=== PATIENT | male | born 2005 | race Caucasian/White ===

== ENCOUNTER 2025-08-18 09:57 | Emergency (ER) | payer OTHER, SELFPAY ==
[2025-08-18 10:05] VITALS: BP 136/85
--- NOTE | 2025-08-18 11:25 | ED.GENMED ---
History of Present Illness
General
Chief Complaint: Dental Problem
Source: patient
Time Seen by Provider: 08/18/25 11:00
History of Present Illness
History of Present Illness:
19-year-old male with no significant past medical history presents to the emergency department for 2 separate concerns noting that on he broke a left upper molar and while he is not having any significant pain was concern for possible
infection as he woke up today with persistent nausea and vomiting. Patient denies any bowel changes, abdominal pain, fevers or infectious symptoms. He does note smoking marijuana multiple times per day. Did not take anything for symptoms prior to
arrival. No other concerns.
Past History
Past History
ED Past Medical History: None
ED Past Surgical History: None
Social History
Tobacco: Vaping
Alcohol: None
Drug: Marijuana
Personal: Single
Living: with family
Review of Systems
Review of Systems
All Other Systems: ROS reviewed and negative except as documented in HPI and ROS
Phy Exam
Physical Exam
Physical Exam:
GENERAL: Alert , in no apparent distress
EYE: clear conjunctiva b/l
HEAD: NCAT
ENT: o/p clr, mmm. Left upper 2nd molar cracked in posterior portion. No surrounding erythema/edema/fluctuance
ABDOMEN: Soft, without focal tenderness, no r/g, no cvat
NEUROLOGICAL: Alert and oriented
SKIN: Warm and dry, skin intact.
MUSCULOSKELETAL: No edema, well perfused.
PSYCH: Normal and appropriate interaction.
Scores
Heart Failure Risk
Heart Failure Risk Score: Not Applicable
Heart Score for Chest Pain Patients
STEMI patient?: Not applicable
Withdrawal Assessment of Alcohol
Withdrawal Assessment Completed?: Not applicable
Course
Orders/Labs/Results
Orders:
Orders
08/18/25 11:23
Ondansetron Orally Disint [Zofran Odt (Orally Disintegrating)] 4 mg PO NOW STA
Vital Signs
Initial and Last Documented VS:
Initial Vital Signs
Temp Pulse Resp BP Pulse Ox
97.5 F 91 20 136/85 99
08/18/25 10:05 08/18/25 10:05 08/18/25 10:05 08/18/25 10:05 08/18/25 10:05
Last Documented Vital Signs
Temp Pulse Resp BP Pulse Ox
97.5 F 91 20 136/85 99
08/18/25 10:05 08/18/25 10:05 08/18/25 10:05 08/18/25 10:05 08/18/25 11:27
MDM/Problems Addressed
Differential Diagnosis Includes:
Cracked/Chipped tooth
Dental caries
Dental abscess
Cannabinoid hyperemesis
Dehydration
Electrolyte Imbalance
Gastroenteritis
MDM/Problems Addressed:
19-year-old male presenting the ER for evaluation of a cracked tooth, secondary concern of nausea and vomiting that began this morning. No known sick contacts or recent antibiotics. Patient does endorse smoking marijuana multiple times per day,
suspect cannabinoid hyperemesis. As far as the cracked tooth goes will start patient on antibiotic and encourage close follow-up with dentist. Encourage patient to abstain from cannabis use as this is the likely cause for his current nausea and
vomiting. Will treat with Zofran ODT and observe.
*Pulse Oximetry
SaO2: 99
Oxygen Mode of Delivery: Room air
Patient hypoxic: no
*Critical Care Note
Total Time (30-74mins, 75-104mins- exclusive of procedures): Not Applicable
Patient Management
Escalation/DeEscalation of care consider admission/obs:
Patient feeling improved following ODT Zofran. Feels comfortable being discharged home. Prescription of this was sent to pharmacy. Patient advised on return precautions, stable for discharge
ED Attending Note
-
Portions of this chart may have been created with voice recognition software.� Occasional wrong word or��sound alike� substitutions may have occurred due to the inherent limitations of voice recognition software.
Discharge Plan
Departure
Patient Disposition: Home (Routine Discharge)
Date of Disposition: 08/18/25
Time of Disposition: 12:13
Patient with high blood pressure during this ER visit?: No
Discharge Problem:
Broken or cracked tooth, nontraumatic, Nausea and vomiting
Instructions: Fractured Tooth (DC)
Prescriptions:
New
ondansetron 4 mg tablet,disintegrating
4 mg PO TIDPRN PRN (Reason: nausea/vomiting) Qty: 10 0RF
Interventions
Interventions:
*General Assessment Last Done: 08/18/25 10:05
*Neglect/Abuse Screening Last Done: 08/18/25 10:05
[facility] Risk Assessment Tool Last Done: 08/18/25 12:10
*Risk Screen - Suicide (C-SSRS) Last Done: 08/18/25 10:05
*Nursing Disposition Last Done: 08/18/25 12:33
Discharge Date and Time
Discharge Date/Time: 08/18/25 12:34
Print Language: NAMIBIAN
[2025-08-18] MEDS: ZOFRAN ODT (ORALLY DISINTEGRATING) 4 MG PO (11:33)
== END 2025-08-18 12:34 | disposition home or self-care (01) ==
LOC: EMR 09:57
PROVIDERS: EMERGENCY PHYSICIAN Emergency Medicine
DX: K03.81 Cracked tooth (principal); R11.2 Nausea with vomiting, unspecified; F12.90 Cannabis use, unspecified, uncomplicated; F17.290 Nicotine dependence, other tobacco product, uncomplicated
CPT/HCPCS: 99283